=== PATIENT | male | born 1980 | race African-American/Black ===

== ENCOUNTER 2019-11-06 15:17 | Emergency (ER) | payer BC, OTHER, SELFPAY ==
--- NOTE | 2019-11-06 15:28 | ED.GENADULT ---
HPI - General Adult General Chief complaint: Extremity Problem,Nontraumatic Stated complaint: pos cellulitis left leg Time Seen by Provider: 11/06/19 16:06 Source: patient Mode of arrival: ambulatory Limitations: no limitations History of Present Illness HPI narrative: 39-year-old male patient presents to the [facility] with complaints of left lower leg pain and warmth that he noticed this morning whenever he woke up. Patient states he had cellulitis in that leg before in the past. Patient denies any injury to the leg that he is aware of. Patient does have history of peripheral vascular disease. Patient states it does hurt at times when walking on it. Related Data Home Medications Medication Instructions Recorded Confirmed omeprazole 11/06/19 Allergies Allergy/AdvReac Type Severity Reaction Status Date / Time No Known Allergies Allergy Mild Verified 12/20/16 18:12 Review of Systems Review of Systems: Narrative: CONSTITUTIONAL: Denies fever, chills, or sweats. EYES: Denies visual changes, redness, or discharge. ENT: Denies rhinorrhea, congestion, sore throat, or otalgia. CARDIOVASCULAR: Denies chest pain, palpitations, or edema. RESPIRATORY: Denies cough or dyspnea. GASTROINTESTINAL: Denies abdominal pain, nausea, vomiting, or diarrhea. GENITOURINARY: Denies dysuria or hematuria. SKIN: Denies rash or itching. MUSCULOSKELETAL: Denies back pain, joint pain, or myalgia. Positive left lower leg pain since this morning NEUROLOGIC: Denies headache, numbness, or weakness. PSYCHIATRIC: Denies anxiety or depression. PMFSH Past Medical History Medical History (Updated 11/06/19 @ 16:14 by VINEET Guevara) Angina at rest Diabetes Hypertension Peripheral vascular disease Pneumonia Sleep apnea Surgical History Surgical History (Updated 11/06/19 @ 16:08 by VINEET Guevara) H/O gastric bypass Comments At the time of my signature I agree with nursing past medical history, surgical, social, and family history. There is no relevant family history pertinent to the presenting complaint. Exam Narrative: Exam Narrative: GENERAL: Well-appearing, well-nourished, and in no acute distress. HEAD: Normocephalic, atraumatic. EYES: PERRLA and EOMI. ENT: Nares clear, no rhinorrhea or epistaxis. Mucous membranes moist. NECK: Supple. No lymphadenopathy CHEST: Clear to auscultation. No respiratory distress. HEART: Regular rate and rhythm. No murmur heard. Normal peripheral pulses. ABDOMEN: Soft, nontender, nondistended, normal active bowel sounds. EXTREMITIES: Normal range of motion. Patient has a reddened area with warmth noted to the medial left lower leg. The reddened area measures approximately 5 cm in length. There is slight swelling noted at the ankle compared to the right ankle. There is no swelling noted to the feet. No pitting edema. No open wounds or drainage noted. SKIN: Warm, dry, no rash. NEURO: No focal deficits. Alert and oriented x3. Course Vital Signs Vital signs: Vital Signs Temperature 36.4 C L 11/06/19 15:32 Pulse Rate 78 11/06/19 15:32 Respiratory Rate 16 11/06/19 15:32 Blood Pressure 126/78 11/06/19 15:32 Pulse Oximetry 100 11/06/19 15:32 Temperature 36.4 C L 11/06/19 15:32 Pulse Rate 78 11/06/19 15:32 Respiratory Rate 16 11/06/19 15:32 Blood Pressure 126/78 11/06/19 15:32 Pulse Oximetry 100 11/06/19 15:32 Vital signs reviewed Medical Decision Making Differential Diagnosis Differential Diagnosis: Differential diagnosis: Abscess, cellulitis, hidradenitis, laceration, puncture wound. Discussed with patient this does appear most likely a cellulitis infection. Discussed with him that our plan of care today is to discharge him home with antibiotics for the infection. Discussed with him I would like him to follow-up with his primary doctor within the next 2 to 4 days. Discussed with him especially if his symptoms are not improving with the antibiotics
[2019-11-06 15:32] VITALS: BP 126/78; PULSE 78; RESP 16; TEMP 36.4; O2SAT 100
== END 2019-11-06 16:22 | disposition home or self-care (01) ==
PROVIDERS: Emergency Provider Nurse Practitioner Family; PCP Family Medicine
DX: L03.116 Cellulitis of left lower limb (principal); I10 Essential (primary) hypertension; E11.51 Type 2 diabetes mellitus with diabetic peripheral angiopathy without gangrene; G47.30 Sleep apnea, unspecified; Z98.84 Bariatric surgery status
CPT/HCPCS: 99213; G0463

== ENCOUNTER 2022-05-15 19:38 | Emergency (ER) | payer BC, OTHER, SELFPAY ==
--- NOTE | 2022-05-15 19:41 | ED.GENADULT ---
HPI - General Adult General Chief complaint: Upper Respiratory Infection Stated complaint: cold/flu sx Time Seen by Provider: 05/15/22 19:41 Source: patient Mode of arrival: ambulatory Limitations: no limitations History of Present Illness HPI narrative: 42-year-old male patient presents to the [facility] with complaints of cold symptoms that started yesterday. Patient states he has had body aches, chills, fevers as high as 102. Patient states he has had some fatigue. Patient states he did not get influenza vaccine this year. Patient states he did do a COVID test today which was negative. Related Data Home Medications Medication Instructions Recorded Confirmed Medical Marijuania 05/15/22 oxycodone 20 mg tablet 20 mg DIRECTED 05/15/22 05/15/22 pantoprazole 40 mg tablet,delayed 40 mg PO DAILY 05/15/22 05/15/22 release valsartan 160 1 tablet PO DAILY 05/15/22 05/15/22 mg-hydrochlorothiazide 25 mg tablet Allergies Allergy/AdvReac Type Severity Reaction Status Date / Time No Known Allergies Allergy Mild Verified 05/15/22 19:49 Review of Systems Review of Systems: CONSTITUTIONAL: Positive fever, body exam chills, or sweats. EYES: Denies visual changes, redness, or discharge. ENT: Denies rhinorrhea, congestion, sore throat, or otalgia. CARDIOVASCULAR: Denies chest pain, palpitations, or edema. RESPIRATORY: Denies cough or dyspnea. GASTROINTESTINAL: Denies abdominal pain, nausea, vomiting, or diarrhea. GENITOURINARY: Denies dysuria or hematuria. SKIN: Denies rash or itching. MUSCULOSKELETAL: Denies back pain, joint pain, or myalgia. NEUROLOGIC: Denies headache, numbness, or weakness. PSYCHIATRIC: Denies anxiety or depression. PMFSH Past Medical History Medical History Angina at rest Diabetes Hypertension Peripheral vascular disease Pneumonia Sleep apnea Surgical History Surgical History H/O gastric bypass Comments At the time of my signature I agree with nursing past medical history, surgical, social, and family history. There is no relevant family history pertinent to the presenting complaint. Exam Narrative: GENERAL: ill-appearing, well-nourished, and in no acute distress. HEAD: Normocephalic, atraumatic. EYES: PERRLA and EOMI. ENT: Nares with erythema edema noted bilaterally, no rhinorrhea or epistaxis. Mucous membranes moist. Posterior pharynx without erythema, tonsillar enlargement, exudates or lesions present. Bilateral TMs are clear no erythema or foreign bodies the canal NECK: Supple. No lymphadenopathy CHEST: Clear to auscultation. No respiratory distress. HEART: Regular rate and rhythm. No murmur heard. Normal peripheral pulses. ABDOMEN: Soft, nontender, nondistended, normal active bowel sounds. EXTREMITIES: Normal range of motion. No edema. SKIN: Warm, dry, no rash. NEURO: No focal deficits. Alert and oriented x3. Course Course Level of Care: Express Care Visit Reevaluation(s) Reevaluation #1: Re-evaluated patient notified him that his influenza test has come up negative today. Discussed with him that just because that influenza and COVID both tested negative today does not mean he does not have 1 of those viruses is showing that is not testing positive quite yet. Discussed with patient that he needs to get lots of rest, lots of fluids continue Tylenol Motrin to help with body aches fevers and chills. Discussed with patient if he has symptoms causing chest pain or shortness of breath those would be symptoms that he would need to go the ER for further evaluation. Patient verbalized understanding denies any other questions or concerns at this time. Date: 05/15/22 Time: 20:04 Vital Signs Vital signs: Vital Signs Temperature 37.6 C 05/15/22 19:45 Pulse Rate 95 05/15/22 19:45 Respiratory Rate 18 05/15/22 19:45 Blood Pressure 107/64 05/15/22 19:45 Pulse Ox
[2022-05-15 19:45] VITALS: BP 107/64; PULSE 95; RESP 18; TEMP 37.6; O2SAT 99
== END 2022-05-15 20:06 | disposition home or self-care (01) ==
PROVIDERS: Emergency Provider Nurse Practitioner Family; PCP Family Medicine
DX: J06.9 Acute upper respiratory infection, unspecified (principal); I20.9 Angina pectoris, unspecified; E11.9 Type 2 diabetes mellitus without complications; I10 Essential (primary) hypertension; I73.9 Peripheral vascular disease, unspecified; Z98.84 Bariatric surgery status
CPT/HCPCS: 87804; 99213; G0463